=== PATIENT | female | born 1995 | race American Indian/Alaskan Native ===

== ENCOUNTER 2017-07-02 13:55 | Emergency (ER) | payer OTHER ==
[2017-07-02 14:05] VITALS: BP 106/68; PULSE 90; RESP 16; TEMP 99.1; O2SAT 98
--- NOTE | 2017-07-02 14:41 | ED PDOC ---
Arrival/HPI - General Chief Complaint: Foreign Body Time Seen by Provider: 07/02/17 14:10 Historian: Patient - History of Present Illness Narrative History of Present Illness (Text): 07/02/17 14:37 Pt is a 21 year old female, , 8 wks GA, who presents with a right dislodged nipple piercing since this morning. Pt reports that she was about to take the piercing out but realized one end had pulled through into the nipple. Denies pain, fever, nipple discharge or any other findings. Time/Duration: 4-6 hours Symptom Onset: Sudden Symptom Course: Unchanged Severity Level: 1 Activities at Onset: Rest Context: Home Past Medical History - Provider Review Nursing Documentation Reviewed: Yes - Travel History Have you recently traveled outside [place] w/in the past 3 mons?: No - Past History Past History: No Previous - Psychiatric Hx Psychophysiologic Disorder: No Hx Substance Use: No Family/Social History - Physician Review Nursing Documentation Reviewed: Yes Family/Social History: Unknown Family HX Smoking Status: Never Smoked Hx Alcohol Use: Yes Frequency of alcohol use: Socially Hx Substance Use: No Allergies/Home Meds Allergies/Adverse Reactions: Allergies No Known Allergies Allergy (Verified 07/02/17 14:00) Home Medications: Home Meds Medication Instructions Recorded Confirmed No Known Home Med 07/02/17 07/02/17 Review of Systems - Physician Review All systems were reviewed & negative as marked: Yes - Review of Systems Constitutional: Normal Eyes: Normal ENT: Normal Respiratory: Normal Cardiovascular: Normal Gastrointestinal: Normal Genitourinary Female: Normal Musculoskeletal: Normal Skin: Normal, Other (Lost right nipple piercing ) Neurological: Normal Endocrine: Normal Hemo/Lymphatic: Normal Psychiatric: Normal Physical Exam Vital Signs Reviewed: Yes Vital Signs Temp Pulse Resp BP Pulse Ox 07/02/17 14:00 99.1 F 90 16 106/68 98 Temperature: Afebrile Blood Pressure: Normal Pulse: Regular Respiratory Rate: Normal Appearance: Positive for: Well-Appearing, Non-Toxic, Comfortable Pain Distress: None Mental Status: Positive for: Alert and Oriented X 3 - Systems Exam Head: Present: Atraumatic, Normocephalic Pupils: Present: PERRL Extroacular Muscles: Present: EOMI Conjunctiva: Present: Normal Mouth: Present: Moist Mucous Membranes Neck: Present: Normal Range of Motion Respiratory/Chest: Present: Clear to Auscultation, Good Air Exchange. No: Respiratory Distress, Accessory Muscle Use Cardiovascular: Present: Regular Rate and Rhythm, Normal S1, S2. No: Murmurs Abdomen: Present: Normal Bowel Sounds. No: Tenderness, Distention, Peritoneal Signs Back: Present: Normal Inspection Upper Extremity: Present: Normal Inspection. No: Cyanosis, Edema Lower Extremity: Present: Normal Inspection. No: Edema Neurological: Present: GCS=15, CN II-XII Intact, Speech Normal Skin: Present: Warm, Dry, Normal Color, Other (right nipple piercing dislodged ball bearing end inside nipple; no erythema or edema, no dc). No: Rashes Psychiatric: Present: Alert, Oriented x 3, Normal Insight, Normal Concentration Medical Decision Making ED Course and Treatment: 07/02/17 14:40 Impression Pt is a 21 year old female, , 8 wks GA, who presents with a right dislodged nipple piercing since this morning. plan Removal of piercing in right nipple assess and dispo 07/02/17 15:55 Progress Note Piercing was removed without complication pt was given instructions for wound care dispo home - Procedure PROCEDURE NOTE (Text): 07/02/17 15:48 Piercing Removal Pt was positioned and draped appropriately The R nipple and areola was cleansed with chlorhexadine prep pad Using a [id number] needle and 5cc syringe, 2cc of Lidocaine 1% was infiltrated into the nipple from each side of the piercing openings Once pt received adequate anesthesia, the exposed end of the piercing was gently pushed while the other side of the nipple was probed for the other end; once the dislodged end was visualized, it was pushed through and maintained in place to allow full removal of the piercing. Bacitracin applied and Tegaderm covering Pt tolerated the procedure well with minimal bleeding. Disposition/Present on Arrival - Present on Arrival Any Indicators Present on Arrival: Yes History of DVT/PE: No History of Uncontrolled Diabetes: No Urinary Catheter: No History of Decub. Ulcer: No History Surgical Site Infection Following: None - Disposition Have Diagnosis and Disposition been Completed?: Yes Diagnosis: Body piercing Disposition: HOME/ ROUTINE Disposition Time: 15:02 Patient Plan: Discharge Condition: GOOD Discharge Instructions (ExitCare): Wound Care (DC) Additional Instructions: Dear Tri, Please follow up with your Primary care doctor in the next day or so. Follow the wound care instruction sheet provided. If you have any swelling and discharge coming from the nipple along with fever, return to the ED for evaluation All the best, BENJIE Carson Forms: [employer] ([place]ian)
== END 2017-07-02 15:30 | disposition home or self-care (01) ==
LOC: ED 13:55
DX: S20.151A Superficial foreign body of breast, right breast, initial encounter (principal); W26.8XXA Contact with other sharp object(s), not elsewhere classified, initial encounter; Y92.89 Other specified places as the place of occurrence of the external cause